=== PATIENT | male | born 1955 | race Two or more races ===

== ENCOUNTER 2017-12-17 20:50 | Emergency (ER) | payer OTHER ==
[~2017-12-17] VITALS: Ht 167.6 cm; Wt 77.0 kg
[2017-12-17] MEDS ORDERED: HTN MED PO (21:03)
[2017-12-17] MEDS ORDERED: DM MED PO (21:03)
[2017-12-17 21:07] LABS: GLUCOSE,POINT OF CARE 251 MG/DL (70-110)
[2017-12-17 22:44] VITALS: BP 136/62
== END 2017-12-17 22:47 | disposition home or self-care (01) ==
LOC: EMS 20:51
DX: B02.9 Zoster without complications (principal); E11.9 Type 2 diabetes mellitus without complications; I10 Essential (primary) hypertension
CPT/HCPCS: 99283

== ENCOUNTER 2025-06-13 16:46 | Emergency (ER) | payer MEDICARE, MEDICAID ==
[~2025-06-13] VITALS: Ht 170.2 cm; Wt 79.5 kg
[~2025-06-13 16:46] MED LIST: DM MED PO; HTN MED PO
[2025-06-13 16:49] VITALS: TEMP 98.4
[2025-06-13] MEDS ORDERED: ATOR20TA PO (16:51)
[2025-06-13] MEDS ORDERED: LISI-893 PO (16:51)
[2025-06-13] MEDS ORDERED: METF-1185 PO (16:51)
[2025-06-13 17:10] LABS: GLUCOMETER DEV NAME(LOC) ERT.7; GLUCOSE,POINT OF CARE 132 MG/DL (70-110)
[2025-06-13] MEDS: ACETAMINOPHEN 500 MG TABLET PO ONE (18:01)
[2025-06-13] MEDS: LIDOCAINE 5% TRANSDERMAL PATCH TD ONE (18:02)
[2025-06-13] MEDS: KETOROLAC TROMETHAMINE 30 MG/ML VIAL IM ONE (18:03)
[2025-06-13] MEDS ORDERED: IBUP-1492 PO (18:59)
[2025-06-13] MEDS ORDERED: LIDO-57 TP (18:59)
[2025-06-13 19:28] VITALS: BP 155/87; PULSE 68; RESP 16; O2SAT 99
[2025-06-14] MEDS ORDERED: LIDO-57 TP (15:54)
[2025-06-14] MEDS ORDERED: IBUP-1492 PO (15:54)
== END 2025-06-13 20:04 | disposition home or self-care (01) ==
LOC: EMS 16:48
DX: M54.50 Low back pain, unspecified (principal); G89.29 Other chronic pain; E11.9 Type 2 diabetes mellitus without complications; I10 Essential (primary) hypertension; Z79.899 Other long term (current) drug therapy
CPT/HCPCS: 99283; 82962; 96372; J1885